=== PATIENT | male | born 1995 | race Caucasian/White ===

== ENCOUNTER 2021-07-04 18:42 | Emergency (ER) | payer OTHER, SELFPAY ==
[2021-07-04 18:53] VITALS: BP 123/77; PULSE 101; RESP 16; TEMP 36.5; O2SAT 99
--- NOTE | 2021-07-04 19:22 | ED.SKABFB ---
HPI - Skin/Abscess/Foreign Bdy General Chief complaint: Skin/Abscess/Foreign Body Stated complaint: Sores on leg Source: patient, RN notes reviewed and old records reviewed Mode of arrival: ambulatory Limitations: no limitations History of Present Illness HPI narrative: 26 year old male presents to [facility] care with complaints of wounds on his bilateral lower extremities for the past 6 days with new wound on fingers for the past 2 days. Patient has wound to left lateral ankle that is open with yellow center 3cm diameter, wound to right welch that is 1.5 cm diameter that has yellow purulent center and one on right ankle that is 2 cm diameter with yellowish center. Patient states that he had some cuts on his knuckles of bilateral hands which now are starting to open and drain wounds on his legs. Patient denies any fevers, chills or sweats, denies any history of MRSA infection. MD complaint: lesion and other (wounds draining) Onset (ago): day(s) (6) Treatments prior to arrival: bandages and OTC topical medication Related Data Allergies Allergy/AdvReac Type Severity Reaction Status Date / Time No Known Allergies Allergy Mild Unverified 07/13/13 18:21 Review of Systems Review of Systems: CONSTITUTIONAL: Denies fever, chills, or sweats. EYES: Denies visual changes, redness, or discharge. ENT: Denies rhinorrhea, congestion, sore throat, or otalgia. CARDIOVASCULAR: Denies chest pain, palpitations, or edema. RESPIRATORY: Denies cough or dyspnea. GASTROINTESTINAL: Denies abdominal pain, nausea, vomiting, or diarrhea. GENITOURINARY: Denies dysuria or hematuria. SKIN: Denies rash or itching.abscess areas to lower extremities and new wounds on knuckles bilateral hands index finger and 3rd fingers MUSCULOSKELETAL: Denies back pain, joint pain, or myalgia. NEUROLOGIC: Denies headache, numbness, or weakness. PSYCHIATRIC: Denies anxiety or depression. All systems reviewed & are unremarkable except as noted in HPI and below PMFSH Past Medical History Medical History (Updated 07/09/21 @ 17:08 by Elly Renee NP) Accidental heroin overdose Kidney injury age 10 Surgical History Surgical History (Updated 07/09/21 @ 16:55 by Elly Renee NP) No history of previous surgery Family History Family History (Updated 07/09/21 @ 16:56 by Elly Renee NP) Other No significant family history Social History Social History (Updated 07/09/21 @ 16:57 by Elly Renee NP) Smoking packs per day: 1 Smoking cigarettes per day: 20.0 Years smoked: 12 Smoking pack-years: 12.00 Smoking status: Current every day smoker Substance use: former Substance use type: heroin Gender identity (if verbalized by the patient): Male Comments At time of signature, agree with nursing past medical, surgical, social and family history. There is no relevant family history pertinent to the presenting complaint Exam Narrative: GENERAL: Well-appearing, well-nourished, and in no acute distress. HEAD: Normocephalic, atraumatic. EYES: PERRLA and EOMI. ENT: Nares clear, no rhinorrhea or epistaxis. Mucous membranes moist.TM's normal with good light reflex, throat pink with no lesions or exudates, no tonsil enlargement NECK: Supple.no lymphadenopathy CHEST: Clear to auscultation. No respiratory distress.SAO2 99% on room air HEART: Regular rate and rhythm. No murmur heard. Normal peripheral pulses. ABDOMEN: Soft, nontender, nondistended, normal active bowel sounds. EXTREMITIES: Normal range of motion. No edema. SKIN: Warm, dry, no rash.Abscess wound type of lesions to lower extremities for 6 days ranging from 1.5 to 3 cm diameter with open yellowish centers and surrounding redness, small forming abscess type lesions on knuckles of index and 3rd fingers of bilateral hands has been applying antibiotic ointment and covering with bandaids NEURO: No focal deficits. Alert and oriented x3. Course Vital Signs Vital signs: Vital Signs Temperature
== END 2021-07-04 19:42 | disposition home or self-care (01) ==
PROVIDERS: Emergency Provider Registered Nurse
DX: L02.416 Cutaneous abscess of left lower limb (principal); L02.415 Cutaneous abscess of right lower limb; L02.512 Cutaneous abscess of left hand; L02.511 Cutaneous abscess of right hand; F17.200 Nicotine dependence, unspecified, uncomplicated
CPT/HCPCS: 99213; G0463